=== PATIENT | male | born 1955 | race Caucasian/White ===

== ENCOUNTER 2022-03-26 09:18 | Emergency (ER) | payer BC, MEDICAID ==
[~2022-03-26] VITALS: Ht 172.7 cm; Wt 68.2 kg
--- NOTE | 2022-03-26 09:40 | NUR ---
REPORTED PT SXS TO ED MD PIEDRA, PT NOT PLACED STROKE ALERT PER MD AND RECEIVED VO FOR HEAD CT AND LABS.
[2022-03-26] MEDS ORDERED: dexamethasone sod phosphate 10mg/ml inj IV STA (10:06)
[2022-03-26 10:25] LABS: BASOPHILS # (AUTO) 0.1 X10'3 (0-0.2); BASOPHILS % (AUTO) 1.1 % (0-1); EOSINOPHILS # (AUTO) 0.5 X10'3 (0-0.9); EOSINOPHILS % (AUTO) 4.9 % (0-6); HEMATOCRIT 44.2 % (42.0-52.0); HEMOGLOBIN 14.9 g/dl (14.0-17.9); LYMPHOCYTES # (AUTO) 2.4 X10'3 (1.1-4.8); LYMPHOCYTES % (AUTO) 22.6 % (21-51); MEAN CORPUSCULAR HEMOGLOBIN 31.3 PG (27.0-31.0); MEAN CORPUSCULAR HGB CONC 33.7 g/dL (33.0-36.5); MEAN CORPUSCULAR VOLUME 93.1 FL (78-98); MEAN PLATELET VOLUME 8.3 FL (7.4-10.4); MONOCYTES # (AUTO) 0.8 X10'3 (0-0.9); MONOCYTES % (AUTO) 7.1 % (2-12); NEUTROPHILS # (AUTO) 6.9 X10'3 (1.8-7.7); NEUTROPHILS % (AUTO) 64.3 % (42-75); PLATELET COUNT 323 X10'3 (140-440); RED BLOOD COUNT 4.75 X10'6 (4.70-6.10); RED CELL DISTRIBUTION WIDTH 13.7 % (11.5-14.5); WHITE BLOOD COUNT 10.8 X10'3 (4.5-11.0)
[2022-03-26 10:40] LABS: ALANINE AMINOTRANSFERASE 22 U/L (12-78); ALBUMIN 3.5 G/DL (3.4-5.0); ALBUMIN/GLOBULIN RATIO 0.9 (1.1-1.5); ALKALINE PHOSPHATASE 67 IU/L (46-116); ANION GAP 12 (8-16); ASPARTATE AMINO TRANSFERASE 14 U/L (10-37); BILIRUBIN,TOTAL 0.5 MG/DL (0.1-1.0); BLOOD UREA NITROGEN 22 MG/DL (7-18); BUN/CREATININE RATIO 16.4 (5.4-32.0); CALCIUM 8.7 MG/DL (8.5-10.1); CHLORIDE 106 MMOL/L (99-107); CREATININE 1.34 MG/DL (0.60-1.10); GLUCOSE 147 MG/DL (70-104); POTASSIUM 3.5 MMOL/L (3.5-5.1); SODIUM 146 MMOL/L (135-145); TOTAL CARBON DIOXIDE 28.4 MMOL/L (24-32); TOTAL PROTEIN 7.2 G/DL (6.4-8.2); eGFR 53 ML/MIN
--- NOTE | 2022-03-26 12:56 | NUR ---
Brother Chat[facility],
--- NOTE | 2022-03-26 16:18 | NUR ---
Pt not tolerating monitoring; able to obtain vitals.
--- NOTE | 2022-03-26 16:19 | NUR ---
Went to bedside and pt had pulled out PIV. When asked why he removed his IV, pt stated "I don't know, I was tired of fucking with that thing".
[2022-03-26 18:47] VITALS: BP 144/72
[2022-03-26 20:49] LABS: APTT 26 SECONDS (22-32)
== END 2022-03-26 23:20 | disposition hospice, inpatient (51) ==
LOC: ER 09:19
DX: G93.9 Disorder of brain, unspecified (principal); Z20.822 Contact with and (suspected) exposure to COVID-19; R41.82 Altered mental status, unspecified; R25.1 Tremor, unspecified; R63.4 Abnormal weight loss; Z68.22 Body mass index [BMI] 22.0-22.9, adult
CPT/HCPCS: 36415; 70450; 80053; 82948; 85025; 85610; 85730; 87811; 93005; 96374; 99291; J1100